=== PATIENT | female | born 1985 | race Caucasian/White ===

== ENCOUNTER 2016-11-06 15:03 | Emergency (ER) | payer MEDICAID ==
[2010-04-20 06:25] VITALS: BMI 28.9
== END 2016-11-06 16:12 | disposition home or self-care (01) ==
LOC: D.ER 15:03
DX: M54.5 Low back pain (principal)

== ENCOUNTER 2018-05-01 09:53 | Emergency (ER) | payer MEDICAID ==
[~2018-05-01] VITALS: Ht 162.6 cm; Wt 72.7 kg
[2018-05-01 10:01] VITALS: Ht 162.6 cm; Wt 72.7 kg
[2018-05-01] MEDS ORDERED: HYDROCODONE-APA1 TAB PO (10:02)
[2018-05-01 10:29] LABS: BASOPHILS 0.2 % (0-2); EOSINOPHILS 2.9 % (0-7); HEMOGLOBIN 12.9 g/dL (12-16); IMMATURE GRANULOCYTES 0.2 % (0-5); LYMPHOCYTES 33.3 % (15-50); MCH 27.3 pg (26.0-34.0); MCHC 33.1 g/dL (31.0-37.0); MCV 82.5 fL (80.0-100.0); MONOCYTES 3.8 % (2-11); NEUTROPHILS 59.6 % (40-80); PLATELET COUNT 168 10x3/uL (130-400); RBC 4.73 10x6/uL (4.00-5.40); RDW 17.4 % (11.5-14.5); WBC 9.7 10x3/uL (4.8-10.8)
[2018-05-01 10:44] LABS: ALBUMIN 4.2 g/dL (3.4-5.0); ALKALINE PHOSPHATASE 86 U/L (46-116); ALT (SGPT) 54 U/L (10-68); AMYLASE - SERUM 39 U/L (25-115); BILIRUBIN - TOTAL 0.32 mg/dL (0.2-1.3); CALC OSMOLALITY 278 mosm/kg (275-300); CALCIUM 8.8 mg/dL (8.5-10.1); CARBON DIOXIDE 22.8 mmol/L (21.0-32.0); CHLORIDE - SERUM 105 mmol/L (98-107); CREATININE - SERUM 0.9 mg/dL (0.6-1.3); GLUCOSE 97 mg/dL (74-106); LIPASE 84 U/L (73-393); POTASSIUM - SERUM 3.4 mmol/L (3.5-5.1); PROTEIN - SERUM 7.6 g/dL (6.4-8.2); SODIUM 138 mmol/L (136-145); UREA NITROGEN 20 mg/dL (7-18); eGFR NON AFRICAN AMERICAN 78 mL/min (90-120)
[2018-05-01 11:06] LABS: HCG URINE NEGATIVE (NEGATIVE)
[2018-05-01 11:12] LABS: APPEARANCE CLEAR (CLEAR); BACTERIA FEW /hpf (NONE SEEN); BILIRUBIN NEGATIVE (NEGATIVE); CALCIUM OXALATE CRYSTALS RARE /hpf (NONE SEEN); COLOR YELLOW (YELLOW); EPITHELIAL CELLS 0-5 /hpf (0-5); GLUCOSE NEGATIVE (NEGATIVE); KETONE NEGATIVE (NEGATIVE); MUCUS >1+ /lpf (NONE SEEN); NITRITE NEGATIVE (NEGATIVE); PROTEIN NEGATIVE (NEGATIVE); SPECIFIC GRAVITY 1.025 (1.005-1.020); WHITE CELLS - URINE OCC /hpf (0-5)
[2018-05-01] MEDS ORDERED: ZOFRAN ODT4 MG/UDTAB PO (12:31)
[2018-05-01] MEDS ORDERED: BENTYL 20 MG TA20 MG PO (12:31)
[2018-05-01 13:40] VITALS: BP 121/67
== END 2018-05-01 13:41 | disposition home or self-care (01) ==
LOC: D.ER 09:53
PROVIDERS: Family Medicine
DX: A08.4 Viral intestinal infection, unspecified (principal); R11.2 Nausea with vomiting, unspecified; M54.6 Pain in thoracic spine; F17.200 Nicotine dependence, unspecified, uncomplicated

== ENCOUNTER 2019-01-14 10:54 | Emergency (ER) | payer MEDICAID ==
[~2019-01-14] VITALS: Ht 165.1 cm; Wt 75.0 kg
[~2019-01-14 10:54] MED LIST: BENTYL 20 MG TA20 MG PO; HYDROCODONE-APA1 TAB PO; ZOFRAN ODT4 MG/UDTAB PO
[2019-01-14 10:58] VITALS: Ht 165.1 cm; Wt 75.0 kg
[2019-01-14] MEDS ORDERED: GABAPENTIN100 MG PO (11:04)
[2019-01-14] MEDS ORDERED: CYMBALTA30 MG PO (11:05)
[2019-01-14 11:27] LABS: BASOPHILS 0.2 % (0-2); EOSINOPHILS 2.2 % (0-7); HEMOGLOBIN 13.4 g/dL (12-16); IMMATURE GRANULOCYTES 0.2 % (0-5); LYMPHOCYTES 47.1 % (15-50); MCH 27.7 pg (26.0-34.0); MCHC 33.5 g/dL (31.0-37.0); MCV 82.6 fL (80.0-100.0); MEAN PLATELET VOLUME 10.7 fL (7.4-10.4); MONOCYTES 5.1 % (2-11); NEUTROPHILS 45.2 % (40-80); PLATELET COUNT 153 10x3/uL (130-400); RBC 4.84 10x6/uL (4.00-5.40); RDW 17.5 % (11.5-14.5); WBC 5.9 10x3/uL (4.8-10.8)
[2019-01-14 11:29] LABS: APPEARANCE CLEAR (CLEAR); BILIRUBIN NEGATIVE (NEGATIVE); COLOR YELLOW (YELLOW); GLUCOSE NEGATIVE (NEGATIVE); HCG URINE NEGATIVE (NEGATIVE); KETONE NEGATIVE (NEGATIVE); NITRITE NEGATIVE (NEGATIVE); PROTEIN NEGATIVE (NEGATIVE); SPECIFIC GRAVITY 1.015 (1.005-1.020)
[2019-01-14 11:51] LABS: ALBUMIN 4.3 g/dL (3.4-5.0); ALKALINE PHOSPHATASE 83 U/L (46-116); ALT (SGPT) 26 U/L (10-68); AMYLASE - SERUM 34 U/L (25-115); BILIRUBIN - TOTAL 0.37 mg/dL (0.2-1.3); CALC OSMOLALITY 280 mosm/kg (275-300); CALCIUM 9.2 mg/dL (8.5-10.1); CARBON DIOXIDE 24.9 mmol/L (21.0-32.0); CHLORIDE - SERUM 105 mmol/L (98-107); CREATININE - SERUM 0.8 mg/dL (0.6-1.3); GLUCOSE 92 mg/dL (74-106); LIPASE 81 U/L (73-393); POTASSIUM - SERUM 3.8 mmol/L (3.5-5.1); PROTEIN - SERUM 7.6 g/dL (6.4-8.2); SODIUM 140 mmol/L (136-145); UREA NITROGEN 18 mg/dL (7-18); eGFR NON AFRICAN AMERICAN 89 mL/min (90-120)
[2019-01-14] MEDS ORDERED: ZOFRAN ODT4 MG/UDTAB PO (14:44)
[2019-01-14] MEDS ORDERED: BENTYL 20 MG TA20 MG PO (14:44)
[2019-01-14 15:05] VITALS: BP 108/55
== END 2019-01-14 15:06 | disposition home or self-care (01) ==
LOC: D.ER 10:54
PROVIDERS: Family Medicine
DX: A08.4 Viral intestinal infection, unspecified (principal); R11.2 Nausea with vomiting, unspecified